=== PATIENT | female | born 1970 | race Caucasian/White ===

== ENCOUNTER 2018-06-26 13:14 | Outpatient (CLI) | payer OTHER | END 2018-06-26 13:15 | disposition home or self-care (01) | LOC: C.MAMMO 13:15 | DX: Z12.31 Encounter for screening mammogram for malignant neoplasm of breast (principal) ==

== ENCOUNTER 2018-06-26 14:23 | Emergency (ER) | payer OTHER ==
--- NOTE | 2018-06-26 15:41 | C.PDOC ---
History Of Present Illness 48 year old female presents to the ED for evaluation of right knee pain x 3 days. 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 She reports experiencing left knee pain in the past, but symptoms resolved after taking anti-inflammatory medication. Patient started taking Motrin for her currently symptoms, but ran out. She has been applying heating pads to the area without relief. Patient states she is limping. She denies extremity numbness/weakness. Chief Complaint (Nursing): Lower Extremity Problem/Injury History Per: Patient History/Exam Limitations: no limitations Onset/Duration Of Symptoms: Days Current Symptoms Are (Timing): Still Present Severity: Moderate Pain Scale Rating Of: 6 Recent travel outside of the [place]: No Additional History Per: Patient - Knee Description Of Injury: denies: Fell, Struck With Object, Struck Against Object, Twisted Alleviating Factor(s): OTC Pain Medication Past Medical History Reviewed: Historical Data, Nursing Documentation, Vital Signs Vital Signs: Last Vital Signs Temp 98.3 F 06/26/18 15:01 Pulse 79 06/26/18 15:01 Resp 20 06/26/18 15:01 BP 131/84 06/26/18 15:01 Pulse Ox 99 06/26/18 15:01 - Medical History PMH: No Chronic Diseases Surgical History: No Surg Hx - [facility] Procedures CLOSURE SKIN & SUBCUTANEOUS NEC (04/10/13) INJECT/INFUSE NEC (04/10/13) TETANUS TOXOID ADMINIST (04/10/13) Family History: States: Unknown Family Hx - Social History Hx Tobacco Use: No Hx Alcohol Use: No Hx Substance Use: No - Immunization History Hx Tetanus Toxoid Vaccination: No Hx Influenza Vaccination: No Hx Pneumococcal Vaccination: No Review Of Systems Musculoskeletal: Positive for: Other (right knee pain ) Neurological: Negative for: Weakness, Numbness Physical Exam - Physical Exam Appears: Non-toxic, No Acute Distress Skin: Normal Color, Warm, Dry, No Ecchymosis, No Other (erythema to right knee ) Head: Atraumatic, Normacephalic Eye(s): bilateral: Normal Inspection Cardiovascular: Rhythm Regular Respiratory: Normal Breath Sounds Gastrointestinal/Abdominal: Soft, No Tenderness Back: No CVA Tenderness Extremity: Normal ROM (ROM intact, but limited secondary to pain ), Tenderness (to right knee joint on palpation ), Capillary Refill (less than 2 seconds ), Other (no gross edema to bilateral knees ) Extremity: Bilateral: Atraumatic, Normal Color And Temperature Pulses: Left Dorsalis Pedis: Normal, Right Dorsalis Pedis: Normal Neurological/Psych: Oriented x3, Normal Speech, Normal Cognition, Normal Motor, Normal Sensation ED Course And Treatment O2 Sat by Pulse Oximetry: 99 (on RA ) Pulse Ox Interpretation: Normal - Other Rad right knee X-Ray: Viewed By Me, Read By Radiologist Interpretation: Accession No. : [id number]. Patient Name / ID : JAZZY MAK R / [id number]. Exam Date : 06/26/2018 16:08:19 ( Approved ). Study Comment : Sex / Age : M / [id number]. Creator : Aydee Kothari MD. Dictator : Aydee Kothari MD. Backbreaker : Car Attendant : Aydee Kothari MD. Approver2 : Report Date : 06/26/2018 16:25:34. My Comment : . Date of service: 06/26/2018. PROCEDURE: Right Knee Radiographs. HISTORY: Pain. COMPARISON: None. TECHNIQUE: 3 views obtained. FINDINGS: BONES: Bone alignment and mineralization are normal. There is no acute displaced fracture or bone destruction. JOINTS: There is mild tricompartmental degenerative osteoarthrosis with reduced joint spaces, marginal osteophytes and tibial spiking, worse in the medial compartment. JOINT EFFUSION: There is a moderate suprapatellar joint effusion. OTHER FINDINGS: None. IMPRESSION: No acute fr acture or dislocation. Mild tricompartmental degenerative osteoarthrosis, worse in the medial compartment. Moderate suprapatellar joint effusion. Medical Decision Making Medical Decision Making: Right knee XR ordered and reviewed- osteoarthritis and joint effusion noted Motrin PO given. patient advised to follow up with ortho in 1-2 days knee ravin wrapped patient verbalized understanding and is in agreement with plan patient is stable for discharge Disposition Counseled Patient/Family Regarding: Studies Performed, Diagnosis, Need For Followup, Rx Given - Disposition Referrals: [facility] [Outside] Disposition: HOME/ ROUTINE Disposition Time: 18:02 Condition: STABLE Additional Instructions: Naproxen twice a day rest, ice, compression, and elevation Try to limit weight bearing to the right knee Follow up in ortho clinic on Tuesday Return to ED if symptoms worsen Prescriptions: Naproxen [Naprosyn] 500 mg PO BID #30 tablet Instructions: Osteochondritis Dissecans (DC) Forms: [employer] (Dominican), Work Excuse - Clinical Impression Clinical Impression: Right knee pain, Osteochondritis dissecans, right knee - PA / TILE INSTALLER / Resident Statement MD/DO has reviewed & agrees with the documentation as recorded. - Scribe Statement The provider has reviewed the documentation as recorded by the Scribe (Magda Anderson) All medical record entries made by the Scribe were at my direction and personally dictated by me. I have reviewed the chart and agree that the record accurately reflects my personal performance of the history, physical exam, medical decision making, and the department course for this patient. I have also personally directed, reviewed, and agree with the discharge instructions and disposition.
[2018-06-26 17:49] VITALS: BP 127/78; PULSE 71; RESP 18; TEMP 98.2
--- NOTE | 2018-06-26 17:57 | RAD ---
Date of service: 06/26/2018 PROCEDURE: Right Knee Radiographs. HISTORY: Pain. No history of recent/ related trauma provided. COMPARISON: None. TECHNIQUE: 2 views obtained. FINDINGS: BONES: Small lucent focus in the lateral femoral condyle. The findings are nonspecific but can be seen without osteochondritis dissecans. JOINTS: Normal. No osteoarthritis. JOINT EFFUSION: Small suprapatellar effusion. OTHER FINDINGS: None. IMPRESSION: Small lucent focus distal right femur. Findings suggest osteochondritis desiccans associated with the lateral femoral condyle.
[2018-06-26 18:05] VITALS: O2SAT 99
== END 2018-06-26 18:30 | disposition home or self-care (01) ==
LOC: C.ER 14:23
DX: M25.561 Pain in right knee (principal); M93.261 Osteochondritis dissecans, right knee